=== PATIENT | male | born 1965 | race Caucasian/White ===

== ENCOUNTER 2021-09-24 19:37 | Inpatient (IN) | payer MEDICAID ==
[~2021-09-24] VITALS: Ht 177.8 cm; Wt 73.0 kg
[2021-09-24 19:55] VITALS: BP 80/52
--- NOTE | 2021-09-24 20:10 | NUR ---
pt taken to bed 6
[2021-09-24] MEDS ORDERED: NACL 0.9% 2,000 ML IV ONE (20:20)
[2021-09-24] MEDS ORDERED: cefTRIAXone 1,000 MG VIAL ONE (20:56)
[2021-09-24 21:04] LABS: BASOPHILS % (AUTO) 0.2 % (0.0-2.0); EOSINOPHILS % (AUTO) 0.1 % (0.0-4.0); HEMATOCRIT 41.3 % (36-52); HEMOGLOBIN 14.2 g/dL (12.0-18.0); LYMPHOCYTES # (AUTO) 0.5 K/uL (2.0-11.5); LYMPHOCYTES % (AUTO) 6.8 % (20.5-51.1); MEAN CORPUSCULAR HEMOGLOBIN 31 pg (27-31); MEAN CORPUSCULAR HGB CONC 35 g/dL (33-37); MEAN CORPUSCULAR VOLUME 89.8 fL (80-94); MONOCYTES # (AUTO) 0.5 K/uL (0.8-1.0); MONOCYTES % (AUTO) 6.2 % (1.7-9.3); NEUTROPHILS # (AUTO) 6.4 K/uL (1.8-7.7); NEUTROPHILS % (AUTO) 86.7 % (42.2-75.2); PLATELET COUNT (AUTO) 218 K/uL (140-450); RED CELL DISTRIBUTION WIDTH 13.5 % (11.6-13.7); WHITE BLOOD COUNT (AUTO) 7.4 K/uL (4.8-10.8)
--- NOTE | 2021-09-24 21:11 | NUR ---
PT ON MONITOR SIDE RAILS UP X1. AT BED SIDE.
--- NOTE | 2021-09-24 21:21 | NUR ---
PT IN GOWN. ON MONITOR SIDE RAILS UP X1. AT BEDSIDE
--- NOTE | 2021-09-24 21:41 | NUR ---
ERNESTO AND FLU SWABS COLLECTED
--- NOTE | 2021-09-24 22:16 | NUR ---
PT RESTING ON MONITOR. SIDE RAILS UP X1. RESP EVEN AND UNLABORED. STEPPED AWAY FROM BEDSIDE
[2021-09-24 22:23] LABS: ANION GAP 21.2 (8-16); ASPARTATE AMINOTRANSFERASE 21 U/L (15-37); CARBON DIOXIDE 18.1 mmol/L (21-32); CHLORIDE 100 mmol/L (98-107); CREATININE 1.7 mg/dL (0.6-1.3); GFR ARICAN-AMERICAN 54 mL/min (>90); GLUCOSE 119 mg/dL (74-106); POTASSIUM 3.3 mmol/L (3.5-5.1); SODIUM SERUM 136 mmol/L (136-145); TOTAL BILIRUBIN 1.1 mg/dL (0.0-1.0); UREA NITROGEN, BLOOD 27 mg/dL (7-18)
--- NOTE | 2021-09-24 22:30 | NUR ---
PT WALKED TO BATHROOM WITH ASSIT GAIT STEADY. URINE COLLECTED SENT TO LAB
[2021-09-24 22:37] LABS: APPEARANCE,URINE CLEAR (CLEAR); BILIRUBIN,URINE NEGATIVE (NEGATIVE); BLOOD, URINE 1+ (NEGATIVE); COLOR,URINE DARK YELLOW (YELLOW); LEUKOCYTE ESTERASE ,URINE NEGATIVE (NEGATIVE); NITRITE, URINE NEGATIVE (NEGATIVE); PH,URINE 5.5 (5.0-9.0); UGLUCOSE NEGATIVE (NEGATIVE)
[2021-09-24 22:47] LABS: HYALINE CASTS, URINE 0-3 /LPF (None Seen); RBC,URINE 0-5 /HPF (0-5); WBC,URINE 0-5 /HPF (0-5)
[2021-09-25] VITALS (13 sets, daily range): BP systolic 97–136; BP diastolic 59–85
[2021-09-25] MEDS ORDERED: NOREPINEPHRINE 4 MG in DEXTROSE 5% 250 ML IV ONE (00:10)
[2021-09-25] MEDS ORDERED: ACETAMINOPHEN 325 MG TAB PO ONE (00:40)
[2021-09-25] MEDS ORDERED: NOREPINEPHRINE 4 MG/4 ML VIAL IV ONE (00:59)
--- NOTE | 2021-09-25 01:05 | NUR ---
PT ICU ADMIT.
[2021-09-25] MEDS ORDERED: VANCOMYCIN PER PHARMACY MC PRN (01:30)
[2021-09-25] MEDS ORDERED: ALBUTEROL SULFATE/IPRATROPIU 3 ML SOL IH PRN (01:45)
[2021-09-25] MEDS ORDERED: NACL 0.9% 1,000 ML IV SCH (01:45)
[2021-09-25] MEDS ORDERED: NOREPINEPHRINE 8 MG in DEXTROSE 5% 250 ML IV PRN (01:55)
--- NOTE | 2021-09-25 01:55 | NUR ---
PATIENT TO CT
--- NOTE | 2021-09-25 02:11 | NUR ---
REPORT GIVEN TO DAVID GARCIA. PT TRANSPORTED VIA BONNIE STALLINGS RN
[2021-09-25] MEDS ORDERED: KCL 20 MEQ/WATER INJ PREMIX 100 ML IV ONE (02:15)
--- NOTE | 2021-09-25 02:25 | NUR ---
ADMITTED THIS 55 YEAR OLD MALE PATIENT FROM ER PER [facility] WITH THE CHIEF COMPLAINT OF DIARRHEA, VOMITING AND FEVER. ASSISTED IN BED 3, HOOKED TO MEDICAL INSURANCE CODING SPECIALIST, SCOPES SHOWS ON SINUS RHYTHM HR 94/MIN NO ARRHYTHMIAS SEEN. PATIENT ALERT BUT SOMEWHAT SLEEPY, MOVES LIMBS FREELY.COMMENCING ON IV LEVOPHED AT 10 MCG/MIN VIA G 18 IV CANNULA ON RIGHT ARM. BREATHING EVEN AND UNLABORED ON 2 LITERS 02/NC, SO2 98%. ABDOMEN IS SOFT; ACTIVE BOWEL SOUNDS.
[2021-09-25] MEDS: methylPREDNISolone SS 125 MG/2 ML VIAL IVP SCH ×4 (02:46→20:55)
[2021-09-25] MEDS ORDERED: PIPERACILLIN/TAZOBACTAM 3.375 GM VIAL IV ONE (03:11)
[2021-09-25] MEDS ORDERED: VANCOMYCIN 1GM/DEXT 5% PREMIX 200 ML IV SCH (03:30)
[2021-09-25] MEDS: PIPERACILLIN/TAZOBACTAM 3.375 GM in DEXTROSE 5% 50 ML IV SCH ×3 (03:35→14:59)
[2021-09-25] MEDS: VANCOMYCIN 1,000 MG VIAL ONE ×2 (03:35→03:37)
--- NOTE | 2021-09-25 03:45 | NUR ---
LEVOPHED DRIP STARTED TO TAPER DOWN PER PROTOCOL; NOW REDUCED TO 8 MCG/MIN.
--- NOTE | 2021-09-25 04:45 | NUR ---
LEVOPHED DRIP TAPER DOWN TO 6 MCG/MIN PER PROTOCOL.
--- NOTE | 2021-09-25 05:45 | NUR ---
HAD BM TO A LARGE AMOUNT OF GREENISH WATERY STOOL AND MIXED WITH HIS URINE.; KEPT CLEAN DRY AND COMFORTABLE.
[2021-09-25 05:53] LABS: HEMATOCRIT 39.9 % (36-52); MEAN CORPUSCULAR HEMOGLOBIN 31 pg (27-31); MEAN CORPUSCULAR HGB CONC 35 g/dL (33-37); MEAN CORPUSCULAR VOLUME 89.3 fL (80-94); PLATELET COUNT (AUTO) 258 K/uL (140-450); RED BLOOD CELL COUNT(AUTO) 4.46 MIL/uL (4.20-6.10); RED CELL DISTRIBUTION WIDTH 13.6 % (11.6-13.7); WHITE BLOOD COUNT (AUTO) 6.9 K/uL (4.8-10.8)
[2021-09-25 05:55] LABS: ANION GAP 18.4 (8-16); CARBON DIOXIDE 18.4 mmol/L (21-32); CREATININE 1.2 mg/dL (0.6-1.3)
[2021-09-25 05:57] LABS: MAGNESIUM 1.7 mg/dL (1.8-2.4); PHOSPHORUS 4.1 mg/dL (2.5-4.9)
[2021-09-25 06:04] LABS: ALBUMIN 3.4 g/dL (3.4-5.0); BILIRUBIN,DIRECT 0.6 mg/dL (0.0-0.3); TOTAL BILIRUBIN 1.5 mg/dL (0.0-1.0)
[2021-09-25 06:22] LABS: POTASSIUM 2.8 mmol/L (3.5-5.1)
--- NOTE | 2021-09-25 06:35 | NUR ---
PATIENT HAS BEEN SCREENED AND CATEGORIZED HIGH NUTRITION RISK. PATIENT WILL BE SEEN WITHIN 1-2 DAYS OF ADMISSION. 09/25/21-09/26/21 ABEBE MELENDEZ MS, RDN
[2021-09-25 06:53] LABS: LYMPHOCYTES % (MANUAL) 4 % (20-46); MONOCYTES % (MANUAL) 2 % (5-12)
--- NOTE | 2021-09-25 06:55 | NUR ---
LEVOPHED DRIP TAPER DOWN TO 4 MCG/MIN PER PROTOCOL.
[2021-09-25] MEDS ORDERED: MAG SULF 2000 MG/WATER PREMIX 100 ML IV ONE (07:00)
[2021-09-25] MEDS ORDERED: KCL 20 MEQ/WATER INJ PREMIX 200 ML IV ONE (07:00)
--- NOTE | 2021-09-25 07:25 | NUR ---
ENDORSED TO AM SHIFT RN SANDY, FOR CONTINUITY OF CARE.
--- NOTE | 2021-09-25 07:30 | NUR ---
RECEIVED REPORT FROM LEADITE MAN. PT IN BED WITH HOB ELEVATED. AOX4, ENGLISH SPEAKING, NO SOB ON 2L O2 VIA NC, SATURATING 98%. SR ON MONITOR. NO C/O PAIN. WITH EPISODES OF LARGE WATERY STOOL. WILL COLLECT STOOL SAMPLE ORDERED. SKIN INTACT. WITH IV ON RH 18G AND LAC 20G RUNNING LEVOPHED 4MCG/MIN AND NS AT 70ML/HR. CALL LIGHT WITHIN REACH. SAFETY PRECAUTIONS IN PLACE.
--- NOTE | 2021-09-25 08:40 | NUR ---
WITH LOOSE WATERY GREEN STOOL, SAMPLE COLLECTED AND SENT TO LAB
--- NOTE | 2021-09-25 09:05 | NUR ---
SEEN AND EXAMINED BY DR MORGAN
--- NOTE | 2021-09-25 09:10 | NUR ---
HELD LEVOPHED SBP ABOVE 90, MAP ABOVE 65
[2021-09-25] MEDS ORDERED: PANTOPRAZOLE 40 MG INJ VIAL ONE (10:00)
--- NOTE | 2021-09-25 10:00 | NUR ---
DUE MORNING MEDS GIVEN
[2021-09-25 10:53] LABS: BARBITURATE, URINE NEGATIVE ng/ml (NEG <=200); BENZODIAZEPINE, URINE NEGATIVE ng/mL (NEG <=200); CANNABINOID, URINE NEGATIVE ng/mL (NEG <=50); COCAINE, URINE NEGATIVE ng/mL (NEG <=300); OPIATE, URINE NEGATIVE ng/mL (NEG <=2000); PHENCYCLIDINE SCREEN,URINE NEGATIVE ng/mL (NEG <=25)
[2021-09-25] MEDS: PANTOPRAZOLE 40 MG INJ VIAL IVP SCH (11:20)
--- NOTE | 2021-09-25 11:37 | NUR ---
ZOO KEEPER WENT TO DO PULSE CHECK AND FOUND PATIENT COMFORTABLE AND ASLEEP SATTING 100% ON RA. PATIENT WAS IN NO ACUTE DISTRESS AND HAD SYMMETRICAL CHEST RISE AND HAD BILATERAL DIMINISHED BREATH SOUNDS. WILL CONTINUE TO MONITOR.
[2021-09-25] MEDS ORDERED: VANCOMYCIN 750 MG in DEXTROSE 5% 250 ML IV SCH (12:00)
--- NOTE | 2021-09-25 13:15 | NUR ---
ASSISTED TO COMMODE, WITH LOOSE WATERY STOOL
[2021-09-25] MEDS: LACTATED RINGERS 1,000 ML IV SCH (14:49)
--- NOTE | 2021-09-25 15:20 | NUR ---
pt resting in bed, no complaints at this time
[2021-09-25] MEDS: LEVOFLOXACIN 750 MG/D5W PREMIX 150 ML IV SCH (16:18)
--- NOTE | 2021-09-25 16:49 | NUR ---
INSTRUMENT FITTER DID PULSE OX CHECK. PT WAS ASLEEP AND COMFORTABLE. NO SIGNS OF ACUTE RESPIRATORY DISTRESS. WILL CONT. TO MONITOR. LOC PATINO
--- NOTE | 2021-09-25 17:30 | NUR ---
PT AWAKE IN BED, TALKING TO FAMILY ON PHONE, NO SOB ON RA, NO C/O PAIN, VS WNL
--- NOTE | 2021-09-25 19:39 | NUR ---
PATIENT AAOX4. ABLE TO TOLERATE CLEAR LIQUID DIET. PT DOES REPORT STILL HAVING SLIGHT DIARRHEA OTHERWISE "FEELS MUCH BETTER". PATIENT NO LONGER ON THE LEVOPHED WITH MAP ABOVE 65. PATIENT DENIES ANY PAIN AT THIS TIME. 10ML FLUSHABLE THROUGH BILATERAL IVs THROUGH FA AND AC- NO REDNESS, SWELLING, DRAINAGE, AND WARMTH AT THE IV SITES.
[2021-09-25] MEDS: metroNIDAZOLE 500 MG/NS PREMIX 100 ML IV SCH (20:55)
[2021-09-26] VITALS (9 sets, daily range): BP systolic 83–107; BP diastolic 39–62
--- NOTE | 2021-09-26 00:01 | NUR ---
PATIENT CURRENTLY SLEEPING- LOW FOWLERS, WITH VS WNL.
--- NOTE | 2021-09-26 03:16 | NUR ---
PATIENT AMBULATED TO THE BEDSIDE COMMODE. HAD DIARRHEA BM AND URINATED. TOLERATED WELL. PATIENT DENIES ANY PAIN, AND SOB. AAOX4. GCS15.
[2021-09-26] MEDS: LACTATED RINGERS 1,000 ML IV SCH ×3 (03:30→21:14)
[2021-09-26] MEDS: metroNIDAZOLE 500 MG/NS PREMIX 100 ML IV SCH ×3 (04:30→21:12)
[2021-09-26] MEDS: methylPREDNISolone SS 125 MG/2 ML VIAL IVP SCH ×2 (04:31→13:00)
[2021-09-26 05:40] LABS: ALBUMIN 3.1 g/dL (3.4-5.0); ANION GAP 13.3 (8-16); CARBON DIOXIDE 22.8 mmol/L (21-32); POTASSIUM 3.1 mmol/L (3.5-5.1); TOTAL BILIRUBIN 0.8 mg/dL (0.0-1.0)
[2021-09-26 05:54] LABS: BASOPHILS % (AUTO) 0.1 % (0.0-2.0); HEMATOCRIT 38.6 % (36-52); HEMOGLOBIN 13.5 g/dL (12.0-18.0); LYMPHOCYTES # (AUTO) 0.5 K/uL (2.0-11.5); LYMPHOCYTES % (AUTO) 6.8 % (20.5-51.1); MEAN CORPUSCULAR HEMOGLOBIN 31 pg (27-31); MEAN CORPUSCULAR HGB CONC 35 g/dL (33-37); MEAN CORPUSCULAR VOLUME 88.3 fL (80-94); MONOCYTES # (AUTO) 0.3 K/uL (0.8-1.0); MONOCYTES % (AUTO) 3.4 % (1.7-9.3); NEUTROPHILS % (AUTO) 89.7 % (42.2-75.2); PLATELET COUNT (AUTO) 221 K/uL (140-450); RED BLOOD CELL COUNT(AUTO) 4.38 MIL/uL (4.20-6.10); RED CELL DISTRIBUTION WIDTH 13.8 % (11.6-13.7); WHITE BLOOD COUNT (AUTO) 7.8 K/uL (4.8-10.8)
--- NOTE | 2021-09-26 06:53 | NUR ---
DR MORGAN MADE AWARE OF POTASSIUM 3.1; NEW ORDER RECEIVED.CARRIED OUT
[2021-09-26] MEDS ORDERED: POTASSIUM CHLORIDE 10 MEQ TABER PO SCH (06:55)
--- NOTE | 2021-09-26 07:07 | NUR ---
REPORT GIVEN TO RN FOR CONTINUITY OF CARE.
--- NOTE | 2021-09-26 07:18 | NUR ---
RECEIVED REPORT FROM JOSE SAM. TRANSFER OF CARE AT THIS TIME. Addendum: 09/26/21 at 0752 by Olivia Lopez RN WRONG NOTE ENTERED.
--- NOTE | 2021-09-26 07:30 | NUR ---
RECEIVED BEDSIDE REPORT FROM DARIN NIGHT RN FOR CONTINUITY OF CARE. PT A&OX4, ABLE TO VERBALIZE NEEDS. SR ON MONITOR. ROOM AIR. AMBULATORY TO BEDSIDE COMMODE AND HAVING DIARRHEA, GREEN, SOFT STOOL NOTED IN COMMODE. URINAL AT BEDSIDE. ON CDIFF PRECAUTIONS. CALL LIGHT WITHIN REACH. INITIAL ASSESSMENT COMPLETE.
[2021-09-26] MEDS: PANTOPRAZOLE 40 MG INJ VIAL IVP SCH (08:45)
--- NOTE | 2021-09-26 09:00 | NUR ---
PT FINISHED 100% OF BREAKFAST, CLEAR LIQUID DIET. PT RESTING COMFORTABLY IN BED, NO COMPLAINTS OF PAIN.
--- NOTE | 2021-09-26 10:16 | NUR ---
PT BACK FROM CT. Addendum: 09/26/21 at 1017 by Jackie Rae RN WRONG PT. PLEASE DISREGARD.
--- NOTE | 2021-09-26 11:30 | NUR ---
PT RESTING IN BED, AWAITING TRANSFER TO [facility]. PT DENIES PAIN AT THIS TIME.
--- NOTE | 2021-09-26 13:15 | NUR ---
REPORT GIVEN TO NURSE IN [facility] AT 1310 FOR CONTINUITY OF CARE.
--- NOTE | 2021-09-26 13:15 | NUR ---
RECEIVED PATIENT PER WHEELCHAIR FROM ICU AND MADE COMFORTABLE IN BED. ASSESSMENT DONE AND CALL LIGHT WITH IN REACH.
[2021-09-26] MEDS: LEVOFLOXACIN 750 MG/D5W PREMIX 150 ML IV SCH (15:27)
--- NOTE | 2021-09-26 19:30 | NUR ---
RECEIVED BEDSIDE REPORT FROM DAY SHIFT RN FOR CONTINUITY OF CARE. PT IS AAOX4. PT IS ON RA NOT IN ANY ACUTE DISTRESS. BREATHING EVEN AND UNLABORED. PT HAS NO COMPLAINS AT THIS TIME. PT ABLE TO AMBULATE. GAIT STEADY. CALL LIGHT WITHIN REACH. ALL SAFETY MEASURES TAKEN. WILL CONTINUE TO MONITOR THE PT.
[2021-09-26] MEDS ORDERED: methylPREDNISolone SS 40 MG/ML VIAL IVP SCH (21:21)
--- NOTE | 2021-09-26 21:28 | NUR ---
ALL DUE MEDS GIVEN. NO ADVERSE REACTION NOTED. WILL CONTINUE TO MONITOR THE PT.
[2021-09-27] VITALS: BP 105/63
[2021-09-27] MEDS ORDERED: CHLORHEXADINE GLUC 2% CLOTH TP SCH (00:40)
[2021-09-27] MEDS ORDERED: MUPIROCIN CA NASAL 2% 1GM TUBE NS SCH (00:40)
--- NOTE | 2021-09-27 01:12 | NUR ---
CALLED PHARMACY TO VERIFY NEW MEDICATIONS CHLORHEXADINE GLUC 2% CLOTH AND MUPIROCIN CA NASAL 2% 1GM TUBE. THEY SAID SAID TO GIVE THEM A MINUTE TO VERIFY MEDICATION. WAITING FOR VERIFICATION.
--- NOTE | 2021-09-27 02:50 | NUR ---
PT IS SLEEPING COMFORTABLY IN BED. PT IS NOT IN ANY DISTRESS. IVF RUNNING PER MD ORDER. CALL LIGHT WITHIN REACH. ALL SAFETY MEASURES TAKEN. WILL CONTINUE TO MONITOR THE PT.
[2021-09-27 04:00] VITALS: BP 93/51
--- NOTE | 2021-09-27 04:20 | NUR ---
PT BLOOD PRESSURE WAS TRENDING LOW. 88/42 AND 93/[address] MORGAN. HE ORDERED LACTIC ACID WITH AM LABS.
[2021-09-27] MEDS: metroNIDAZOLE 500 MG/NS PREMIX 100 ML IV SCH ×2 (05:33→12:19)
[2021-09-27] MEDS: LACTATED RINGERS 1,000 ML IV SCH (06:45)
--- NOTE | 2021-09-27 07:20 | NUR ---
ENDORSED PT TO DAY SHIFT RN FOR CONTINUITY OF CARE. PT IS STABLE.
[2021-09-27] MEDS: PANTOPRAZOLE 40 MG INJ VIAL IVP SCH (08:08)
[2021-09-27 10:00] VITALS: BP 93/53
[2021-09-27] MEDS ORDERED: METR-520 PO (10:02)
[2021-09-27] MEDS ORDERED: POTA10TA70 PO (10:02)
[2021-09-27] MEDS ORDERED: LEVO750T51 PO (10:02)
[2021-09-27 12:07] LABS: BASOPHILS % (AUTO) 0.2 % (0.0-2.0); HEMATOCRIT 35.6 % (36-52); HEMOGLOBIN 12.1 g/dL (12.0-18.0); LYMPHOCYTES # (AUTO) 0.8 K/uL (2.0-11.5); LYMPHOCYTES % (AUTO) 9.4 % (20.5-51.1); MEAN CORPUSCULAR HEMOGLOBIN 31 pg (27-31); MEAN CORPUSCULAR HGB CONC 34 g/dL (33-37); MEAN CORPUSCULAR VOLUME 89.6 fL (80-94); MONOCYTES # (AUTO) 0.5 K/uL (0.8-1.0); MONOCYTES % (AUTO) 5.8 % (1.7-9.3); NEUTROPHILS # (AUTO) 6.9 K/uL (1.8-7.7); NEUTROPHILS % (AUTO) 84.6 % (42.2-75.2); PLATELET COUNT (AUTO) 235 K/uL (140-450); RED BLOOD CELL COUNT(AUTO) 3.97 MIL/uL (4.20-6.10); RED CELL DISTRIBUTION WIDTH 13.7 % (11.6-13.7); WHITE BLOOD COUNT (AUTO) 8.2 K/uL (4.8-10.8)
[2021-09-27] MEDS ORDERED: POTASSIUM CHLORIDE 10 MEQ TABER PO PRN (12:45)
[2021-09-27 13:25] LABS: ALBUMIN 2.8 g/dL (3.4-5.0); CARBON DIOXIDE 21.6 mmol/L (21-32); CREATININE 0.9 mg/dL (0.6-1.3); POTASSIUM 3.6 mmol/L (3.5-5.1); TOTAL BILIRUBIN 0.4 mg/dL (0.0-1.0)
--- NOTE | 2021-09-27 13:48 | NUR ---
TALKED TO PATIENT RE DISCHARGE ORDER AND STATED WILL TELL THE FAMILY AND THEY KNEW TO PICK HIM UP BEFORE 1200 MIDNOC COMING FROM [place] [facility]. DEVAN CHARGE NURSE MADE AWRE OF PATIENT STATEMENT RE RIDE HOME.
[2021-09-27 14:00] VITALS: BP 99/61
[2021-09-27] MEDS: LEVOFLOXACIN 750 MG/D5W PREMIX 150 ML IV SCH (14:37)
[2021-09-27 14:40] VITALS: BP 99/61
--- NOTE | 2021-09-27 16:02 | NUR ---
PATIENTS FAMILY HERE TO PICK AND IV DCD INTACT. HOME IN STABLE CONDITION ER WHEELCHAIR ACCOMPANIED BY AJ AND SHAWN. PATIENT STATED UNDERSTANDING OF INSTRUCTIONS. Addendum: 09/27/21 at 1606 by Agency Nurse 20, RN RN ACCOMPANIED BY SCREEN PRINTING LOADER UNLOADER AND FAMILY.
== END 2021-09-27 16:15 | disposition home or self-care (01) | DRG 720 ==
LOC: MED 19:37 → MIC 09-25 00:53 → MTU 09-26 13:05
PROVIDERS: ADMIT Student in an Organized Health Care Education/Training Program; ATTEND Student in an Organized Health Care Education/Training Program
DX: A41.9 Sepsis, unspecified organism (principal); N17.0 Acute kidney failure with tubular necrosis; E87.2 Acidosis; R65.20 Severe sepsis without septic shock; A09 Infectious gastroenteritis and colitis, unspecified; E87.6 Hypokalemia; E83.51 Hypocalcemia; E83.42 Hypomagnesemia; E80.6 Other disorders of bilirubin metabolism; Z20.822 Contact with and (suspected) exposure to COVID-19; Z90.49 Acquired absence of other specified parts of digestive tract
CPT/HCPCS: 36415; 71045; 74160; 76770; 80048; 80053; 80076; 80202; 80305; 81001; 83605; 83735; 83880; 84100; 84484; 85025; 87040; 87045; 87070; 87081; 87086; 87635-QW; 93005; 96361; 96365; 99291; C9113; J0696; J1956; J2543; J2930; J3370; J3475; J3480; J3490; J7030; J7060; Q0092; Q9967